=== PATIENT | male | born 1940 | race Two or more races ===

== ENCOUNTER 2016-09-04 11:18 | Day surgery (SDC) | payer OTHER ==
[~2016-09-04] VITALS: Ht 167.6 cm; Wt 71.7 kg
[2016-09-04 12:26] VITALS: Ht 167.6 cm; Wt 71.7 kg
[2016-09-04] MEDS ORDERED: LISI-313 PO (12:39)
[2016-09-04] MEDS ORDERED: LEVO50TA74 PO (12:39)
[2016-09-04 13:23] VITALS: BP 162/74; PULSE 50; RESP 16
[2016-09-04] MEDS ORDERED: PROPOFOL 40 ML ONE (13:55)
[2016-09-04 14:39] VITALS: BP 131/73; RESP 20
--- NOTE | 2016-09-04 18:18 | GILP ---
DATE OF PROCEDURE: 09/04/2016 NAME OF PROCEDURE: Colonoscopy and biopsy. SURGEON: Mary Anne MD PREOPERATIVE DIAGNOSIS: Screening colonoscopy. POSTOPERATIVE DIAGNOSES: 1. Colonoscopy all the way to the cecum. 2. Small right colon polyp was removed using the biopsy forceps. 3. Diverticulosis of the colon. 4. Internal hemorrhoids. INDICATION FOR THE PROCEDURE: Mr. Lior Alvarez is a 75-year-old male patient who was scheduled fo r screening colonoscopy. The procedure and possible complications were well explained to the patient. The patient understood and consented to the procedure. DESCRIPTION OF PROCEDURE: Under the influence of anesthesia, the colonoscope was carefully introduc ed in the rectum and under direct vision, it was advanced all the way to the cecum. FINDINGS: The patient had a small right colon polyp and it was removed using the biopsy forceps. T he patient was noted to have diverticulosis of the colon. He also had internal hemorrhoids. He tolerated the procedure very well and there was no complication from the procedure. At the end o f the procedure, he was awake with stable vital signs and he was discharged home to the care of his family. IMPRESSION: 1. Colonoscopy all the way to the cecum. 2. Small right colon polyp was removed using the biopsy forceps. 3. Internal hemorrhoids. PLAN: Await histopathology report. Because of the patient's age, he will not need another screenin g colonoscopy. Dictated By: MARY CROOKS/JAMIR Conf#: [id number] DID#: [id number] CC: MARY ANNE MD;*EndCC*
== END 2016-09-04 15:28 | disposition home or self-care (01) ==
LOC: GIL 11:18
PROVIDERS: ATTEND Internal Medicine Gastroenterology
DX: Z12.11 Encounter for screening for malignant neoplasm of colon (principal); K63.5 Polyp of colon; K57.90 Diverticulosis of intestine, part unspecified, without perforation or abscess without bleeding; K64.8 Other hemorrhoids; I10 Essential (primary) hypertension
CPT/HCPCS: 88305